=== PATIENT | female | born 1980 | race Hispanic/Latino ===

== ENCOUNTER → 2022-11-30 | Outpatient (CLI) | payer OTHER ==
[~2022-11-30] VITALS: Ht 156.2 cm; Wt 108.9 kg
[~2022-11-30] MED LIST: ACET-2743 PO; DICY10 PO; LEVO175C2 PO; LOSA100T58 PO; METO-409 PO
[2022-11-30 11:18] LABS: BASOPHILS % (AUTO) 0.3 % (0.0-5.0); EOSINOPHILS % (AUTO) 1.2 % (0.0-8.0); HEMATOCRIT 35.8 % (36-48); LYMPHOCYTES % (AUTO) 30.2 % (21.0-51.0); MEAN CORPUSCULAR HEMOGLOBIN 29.6 pg (27.0-33.0); MEAN CORPUSCULAR HGB CONC 35.2 g/dL (32.0-36.0); MEAN CORPUSCULAR VOLUME 84.2 fL (79-99); MONOCYTES % (AUTO) 5.9 % (3.0-13.0); NEUTROPHILS % (AUTO) 62.1 % (40.0-77.0); PLATELET COUNT (AUTO) 198 K/uL (130-400); RED BLOOD CELL COUNT(AUTO) 4.25 MIL/uL (4.00-5.50); RED CELL DISTRIBUTION WIDTH 13.1 % (11.0-15.5); WHITE BLOOD COUNT (AUTO) 9.7 K/uL (4.8-10.8)
[2022-12-02 12:23] VITALS: BP 185/92
== END | disposition home or self-care (01) ==
LOC: DAH 10:00 → EDSTATUS 12-03 08:30
PROVIDERS: ATTEND Otolaryngology
DX: Z01.818 Encounter for other preprocedural examination (principal); Z20.822 Contact with and (suspected) exposure to COVID-19; H70.11 Chronic mastoiditis, right ear
CPT/HCPCS: 36415; 85025; 87426

== ENCOUNTER 2023-03-04 06:25 | Day surgery (SDC) | payer OTHER ==
[2023-03-03 14:41] LABS: BASOPHILS % (AUTO) 0.7 % (0.0-5.0); EOSINOPHILS % (AUTO) 1.7 % (0.0-8.0); HEMATOCRIT 36.7 % (36-48); LYMPHOCYTES % (AUTO) 34.6 % (21.0-51.0); MEAN CORPUSCULAR HEMOGLOBIN 29.8 pg (27.0-33.0); MEAN CORPUSCULAR HGB CONC 34.9 g/dL (32.0-36.0); MEAN CORPUSCULAR VOLUME 85.3 fL (79-99); MONOCYTES % (AUTO) 6.6 % (3.0-13.0); NEUTROPHILS % (AUTO) 56.2 % (40.0-77.0); PLATELET COUNT (AUTO) 239 K/uL (130-400); RED CELL DISTRIBUTION WIDTH 13.7 % (11.0-15.5); WHITE BLOOD COUNT (AUTO) 9.7 K/uL (4.8-10.8)
[2023-03-03 14:52] VITALS: BP 167/86
[~2023-03-04] VITALS: Ht 157.5 cm; Wt 112.2 kg
[2023-03-04] VITALS (15 sets, daily range): BP systolic 121–156; BP diastolic 67–89
[~2023-03-04 06:25] MED LIST changes: -DICY10 PO; +ERGO500093 PO; -LOSA100T58 PO; +LOSA100T59 PO
[2023-03-04] MEDS ORDERED: LACTATED RINGERS 1000ML 1,000 ML IV ONE (07:29)
[2023-03-04] MEDS ORDERED: MUPIROCIN OINTMENT 22 GM TUBE TP SCH (08:30)
[2023-03-04] MEDS ORDERED: LIDOCAINE 1%-EPI 1:100,000 20 ML VIAL IJ SCH (08:30)
[2023-03-04] MEDS ORDERED: CIPROFLOXACIN HCL/DEXAMETH 7.5 ML DROPS.SUSP OTIC ONE (09:45)
[2023-03-04] MEDS ORDERED: FAMOTIDINE 20MG VIAL IV ONE (09:48)
[2023-03-04] MEDS ORDERED: SUCCINYLCHOLINE 200MG/10ML SYR ONE (09:54)
[2023-03-04] MEDS ORDERED: LIDOCAINE PF 100MG/5ML (2%) SYRINGE 5ML ONE (09:54)
[2023-03-04] MEDS ORDERED: FENTANYL CITRATE PF 50 MCG/1 ML 2ML VIAL ONE ×2 (09:55→10:34)
[2023-03-04] MEDS ORDERED: ROCURONIUM 10MG/1ML SYR 10 MG/ML ML ONE (09:55)
[2023-03-04] MEDS ORDERED: PROPOFOL 10 MG/ML 20ML VIAL IV ONE (09:55)
[2023-03-04] MEDS ORDERED: MIDAZOLAM HCL 1 MG/ML 2ML VIAL ONE (09:55)
[2023-03-04] MEDS ORDERED: CEFAZOLIN SODIUM 2 GM VIAL IVPB ONE (10:05)
[2023-03-04] MEDS ORDERED: ONDANSETRON 4MG INJ ONE ×3 (10:13→13:16)
[2023-03-04] MEDS ORDERED: CEFAZOLIN SODIUM 1 GM VIAL ONE (10:30)
[2023-03-04] MEDS ORDERED: EPINEPHRINE 1MG/10ML(1:10,000) 0.1 MG/ML SYG ONE (10:32)
[2023-03-04] MEDS ORDERED: MEPERIDINE-PF 25 MG/ML SYG ONE (12:00)
[2023-03-04] MEDS: FENTANYL CITRATE PF 50 MCG/1 ML 2ML VIAL ONE ×2 (12:54→13:00)
[2023-03-04] MEDS ORDERED: METOCLOPRAMIDE 10 MG/2 ML VIAL ONE (13:42)
[2023-03-04] MEDS ORDERED: ACETAMINOPHEN WITH CODEINE 1 TAB TAB ONE (14:19)
== END 2023-03-04 15:10 | disposition home or self-care (01) ==
LOC: DAH 06:25
PROVIDERS: ATTEND Otolaryngology
DX: H72.91 Unspecified perforation of tympanic membrane, right ear (principal); Z20.822 Contact with and (suspected) exposure to COVID-19; H70.11 Chronic mastoiditis, right ear; K21.9 Gastro-esophageal reflux disease without esophagitis; Z90.89 Acquired absence of other organs; Z90.49 Acquired absence of other specified parts of digestive tract; Z98.891 History of uterine scar from previous surgery; Z98.890 Other specified postprocedural states; Z79.84 Long term (current) use of oral hypoglycemic drugs; Z79.899 Other long term (current) drug therapy
CPT/HCPCS: 87426; 36415; 85025; 84703; 69645; A6260; A4663; A4649 ×4; A4606; C1713; J7120; J3490 ×2; J3010 ×3; J0690 ×2; J0330; J2001; J0171; J2250; J2704; J2405 ×3; J2175; J2765; A6223; A4215; A4223; A4222; A4221; A4600